=== PATIENT | male | born 2000 | race Caucasian/White ===

== ENCOUNTER 2023-06-06 15:46 | Observation (INO) | payer OTHER ==
[~2023-06-06] VITALS: Ht 167.6 cm; Wt 85.0 kg
[2023-06-06] MEDS ORDERED: WELLBUTRIN SR150 M1 PO (15:56)
[2023-06-06 16:11] VITALS: BP_SYST 123
[2023-06-06 16:13] VITALS: BP 123/56; PULSE 85; TEMP 98.6
--- NOTE | 2023-06-06 18:31 | NUR ---
PATIENT IS A NEW ADMISSION TO THE UNIT. ASSESSMENT AND MED REC ARE ALL COMPLETE. PATIENT IS AXOX4. IS NOT IN ANY PAIN. INDEPENDENT IN THE ROOM. VSS. PULMONOLOGY CONSULTED. CONTINUE WITH STEROIDS AND BREATHING TREATMENTS. PATIENT IS ORIENTED TO THE CALL LIGHT. WILL USE IF NEEDED.
--- NOTE | 2023-06-06 19:44 | NUR ---
REPORT RECIEVED FROM XAVIER ROBIN. PT RESTING IN BED PLAYING ON HIS PHONE. PT DENIES PAIN. CALL LIGHT IN PLACE. ALL NEEDS MET AT THIS TIME.
[2023-06-06 20:17] VITALS: BP 136/57; PULSE 86; TEMP 97.7
--- NOTE | 2023-06-06 20:46 | NUR ---
SHIFT ASSESSMENT COMPLETE, SEE DOCUMENTATION. HS MEDS TAKEN WITHOUT ISSUE. PT DENIES PAIN. CALL LIGHT IN PLACE. ALL NEEDS MET AT THIS TIME.
[2023-06-06 21:00] VITALS: BP_SYST 136
[2023-06-06 23:57] VITALS: BP 129/66; PULSE 96; TEMP 98.3
[2023-06-07 01:28] VITALS: BP_SYST 129
[2023-06-07 03:25] VITALS: BP 135/68; PULSE 87; TEMP 97.7
[2023-06-07 04:08] VITALS: BP_SYST 135
[2023-06-07 05:18] LABS: GRAN # 8.1 K/mm3 (1.4-6.5); GRAN % 86.9 % (42.2-75.2); HEMATOCRIT 45.4 % (42.0-52.0); HEMOGLOBIN 15.9 g/dl (13.5-18.0); LYMPH # 0.8 K/mm3 (1.2-3.4); LYMPH % 9.1 % (20.0-51.0); MEAN CELL VOLUME 88 fl (80.0-100.0); MEAN CORPUSCULAR HEMOGLOBIN 31 pg (27-31); MEAN CORPUSCULAR HGB CONC 35 g/dl (33.0-37.0); MEAN PLATELET VOLUME 10.6 fl (7.4-10.4); MONO # 0.3 K/mm3 (0.1-0.6); MONO % 3.7 % (1.7-9.3); PLATELET COUNT 277 K/mm3 (130-400); RED BLOOD COUNT 5.17 M/mm3 (4.20-5.60); REDCELL DISTRIBUTION WIDTH-CV 12.1 % (11.5-14.5)
[2023-06-07 05:38] LABS: CALCIUM 9.5 mg/dL (8.4-10.2); CREATININE, serum 1.04 mg/dL (0.72-1.25)
[2023-06-07 07:36] VITALS: BP 134/64; PULSE 95; TEMP 98.1
[2023-06-07 09:00] VITALS: BP_SYST 134
[2023-06-07] MEDS ORDERED: RT ADVAIR 228 DISKUS IH (09:38)
[2023-06-07] MEDS ORDERED: PREDNISONE20 MG PO (09:38)
[2023-06-07] MEDS ORDERED: PROAIR HFA0.09 MG/AC IH (09:39)
== END 2023-06-07 10:16 | disposition home or self-care (01) ==
LOC: MEDICAL 15:46
PROVIDERS: ADMIT Internal Medicine
DX: J45.909 Unspecified asthma, uncomplicated (principal); F41.9 Anxiety disorder, unspecified; T65.891A Toxic effect of other specified substances, accidental (unintentional), initial encounter; Y92.9 Unspecified place or not applicable; R04.2 Hemoptysis; U07.0 Vaping-related disorder
CPT/HCPCS: G0378; G0379; J2920

== ENCOUNTER → 2023-09-11 | Outpatient (CLI) | payer OTHER ==
[~2023-09-11] MED LIST: Albuterol 0.083% Neb Soln 2.5 MG/3 ML UD IH ONE; PREDNISONE20 MG PO; PROAIR HFA0.09 MG/AC IH; RT ADVAIR 228 DISKUS IH; WELLBUTRIN SR150 M1 PO
== END ==
LOC: COL.CARD 13:06
DX: R06.02 Shortness of breath (principal)

== ENCOUNTER → 2023-09-12 | Outpatient (CLI) | payer OTHER ==
[~2023-09-12] MED LIST changes: +Methacholine Vial A (Clear Label Base-Cntrl) IH ONE; +Methacholine Vial B (Red Label) 0.0625 MG/ML 3 ML VIAL.NEB IH ONE; +Methacholine Vial C (Orange Label) 0.25 MG/ML 3 ML VIAL.NEB IH ONE; +Methacholine Vial D (Yellow Label) 1 MG/ML 3 ML VIAL.NEB IH ONE; +Methacholine Vial E (Green Label) 4 MG/ML 3 ML VIAL.NEB IH ONE
== END ==
LOC: COL.CARD 09:30
DX: R06.02 Shortness of breath (principal)
CPT/HCPCS: J7674

== ENCOUNTER 2023-10-01 11:58 | Emergency (ER) | payer OTHER ==
[~2023-10-01] VITALS: Ht 15.2 cm; Wt 75.0 kg
[~2023-10-01 11:58] MED LIST changes: -Albuterol 0.083% Neb Soln 2.5 MG/3 ML UD IH ONE; -Methacholine Vial A (Clear Label Base-Cntrl) IH ONE; -Methacholine Vial B (Red Label) 0.0625 MG/ML 3 ML VIAL.NEB IH ONE; -Methacholine Vial C (Orange Label) 0.25 MG/ML 3 ML VIAL.NEB IH ONE; -Methacholine Vial D (Yellow Label) 1 MG/ML 3 ML VIAL.NEB IH ONE; -Methacholine Vial E (Green Label) 4 MG/ML 3 ML VIAL.NEB IH ONE
[2023-10-01 12:14] VITALS: BP 121/70; TEMP 98.2
[2023-10-01] MEDS ORDERED: PREDNISONE20 MG PO (13:32)
[2023-10-01 13:40] VITALS: PULSE 74
== END 2023-10-01 13:40 | disposition home or self-care (01) ==
LOC: COL.ER 11:58
DX: R06.02 Shortness of breath (principal); Z82.5 Family history of asthma and other chronic lower respiratory diseases